=== PATIENT | male | born 1950 | race Caucasian/White ===

== ENCOUNTER → 2021-08-31 | Outpatient (CLI) | payer MEDICARE, OTHER ==
[~2021-08-31] MED LIST: ACET500T68 PO; ASPI-630 PO; CHOL500016 PO; GABA600T7 PO; LATA7.5D OU; MELO15TA23 PO; METF10007 PO; METO100T7 PO; OMEG10005 PO; OMEP40CA7 PO; PHEN37.53 PO; TOPI50TA8 PO; VIT1TABL34 PO
[2021-08-31 09:20] LABS: BASO # 0.1 x10^3/uL (0.0-0.2); BASO % 1 % (0-3); EOS # 0.3 x10^3/uL (0.0-0.7); EOS % 5 % (0-3); HEMATOCRIT 42.3 % (39.0-53.0); HEMOGLOBIN 14.7 g/dL (13.0-17.5); LYMPH # 1.5 x10^3/uL (1.0-4.8); LYMPH % 22 % (24-48); MEAN CORPUSCULAR HEMOGLOBIN 33 pg (25-35); MEAN CORPUSCULAR HGB CONC 35 g/dL (31-37); MEAN CORPUSCULAR VOLUME 94 fL (79-100); MONO # 0.6 x10^3/uL (0.0-1.1); MONO % 9 % (0-9); NEUT # 4.5 x10^3/uL (1.8-7.7); NEUT % 64 % (31-73); PLATELET COUNT 217 x10^3/uL (140-400); RED BLOOD COUNT 4.52 x10^6/uL (4.30-5.70); RED CELL DISTRIBUTION WIDTH 13.7 % (11.5-14.5)
[2021-08-31 09:29] LABS: PROTHROMBIN TIME PATIENT 12.8 SEC (11.7-14.0)
[2021-08-31 09:35] LABS: ALBUMIN 3.2 g/dL (3.4-5.0); GFR 73.5; POTASSIUM 4.2 mmol/L (3.5-5.1)
--- NOTE | 2021-08-31 11:55 | EKG ---
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
--- NOTE | 2021-08-31 12:48 | RAD ---
EXAM: Chest, 2 views. HISTORY: Hypertension. COMPARISON: None. FINDINGS: 2 views of the chest are obtained. There is no infiltrate, pleural effusion or pneumothorax . There is left basilar atelectasis. There is slight eventration of the right hemidiaphragm. The hear t is normal in size. There is a cardiac pacemaker in expected position. IMPRESSION: No acute pulmonary finding. Electronically signed by: Rissa Weber MD (08/31/2021 12:46 PM) [id number]
[2021-08-31 23:08] LABS: HEMOGLOBIN A1C 6.1 % (4.8-5.6)
== END ==
LOC: SURGPAT 12:33
PROVIDERS: ATTEND Orthopaedic Surgery
DX: Z01.818 Encounter for other preprocedural examination (principal); J98.11 Atelectasis; M16.12 Unilateral primary osteoarthritis, left hip
CPT/HCPCS: 36415; 71046; 80048; 82040; 82306; 83036; 85025; 85610; 85651; 85730; 87641; 93005

== ENCOUNTER 2021-10-12 09:32 | Emergency (ER) | payer MEDICARE, OTHER ==
[~2021-10-12] VITALS: Ht 182.9 cm; Wt 133.2 kg
[~2021-10-12 09:32] MED LIST changes: +OXYC5CAP PO; +TRAM50TA PO; +WARF-31 PO
--- NOTE | 2021-10-12 10:17 | RAD ---
EXAM: Pelvis and left hip, 2 views. HISTORY: Pain. COMPARISON: 09/15/2021 FINDINGS: A frontal view of the pelvis and 2 views of the left hip are obtained. There is a left hip arthroplasty in expected position. There is moderate marginal right acetabular and femoral head spurr ing. There is degenerative change at the lower lumbar levels. IMPRESSION: 1. Left hip arthroplasty in expected position. 2. Moderate right hip osteoarthritis. Electronically signed by: Rissa Weber MD (10/12/2021 10:15 AM) [id number]
--- NOTE | 2021-10-12 10:32 | PHYS DOC ---
Past Medical History Additional Past Medical Histor: bradycardia Past Surgical History: Other Additional Past Surgical Histo: left hip replacement one month ago, left achilles tendon repair, pacemaker Smoking Status: Never Smoker Alcohol Use: None General Adult EDM: Chief Complaint: HIP PAIN HPI: HPI: 71 yo M past medical history of bradycardia with pacemaker, presents to the ED with complaints of left-sided low back pain that radiates to left anterior thigh that started when he was getting out of a car. States "my hip feels like a guitar string got snapped." Report left hip replacement surgery with Dr. Barnett approximately 1 month ago. States he was able to use the [employer] stairs yesterday, "I haven't been able to do stairs in months." Denies any fall, blunt trauma or injury. States " this feels like my sciatica." Denies any history of trauma, history of IV drug use, history of cancer, history of malignancy, history of immunocompromise state, neurologic complaints including saddle anesthesia, weakness or paresthesias, urinary retention, bowel or bladder inc ontinence, night pain, fever/chills/night sweats, unexplained weight loss, anticoagulants or coagulopathy, prolonged steroid use or presence of contusions or abrasions. No relief with oxycodone taken prior to ed arrival. Review of Systems: Review of Systems: Constitutional: Denies fever or chills. [] Eyes: Denies change in visual acuity. [] HENT: Denies nasal congestion or sore throat. [] Respiratory: Denies cough or shortness of breath. [] Cardiovascular: Denies chest pain or edema. [] GI: Denies nausea or vomiting : Denies incontinence or saddle anesthesia Musculoskeletal: Denies flank pain or joint pain. [] Integument: Denies rash or diaphoresis Neurologic: Denies headache, focal weakness or sensory changes. [] Endocrine: Denies polyuria or polydipsia. [] Lymphatic: Denies swollen glands. [] Psychiatric: Denies depression or anxiety. [] Heart Score: C/O Chest Pain: No Risk Factors: Risk Factors: DM, Current or recent (<one month) smoker, HTN, HLP, family history of CAD, obesity. Risk Scores: Score 0 - 3: 2.5% MACE over next 6 weeks - Discharge Home Score 4 - 6: 20.3% MACE over next 6 weeks - Admit for Clinical Observation Score 7 - 10: 72.7% MACE over next 6 weeks - Early Invasive Strategies Allergies: Allergies: Allergies Coded Allergies Type Severity Reaction Last Updated Verified No Known Drug Allergies 09/15/21 No Physical Exam: PE: Constitutional: Well developed, well nourished, no acute distress, non-toxic appearance. HENT: Normocephalic, atraumatic, Eyes: EOMI, conjunctiva normal, no discharge. Neck: Normal range of motion, supple, Cardiovascular: S1/2 present, regular rhythm Lungs & Thorax: Speaking in full sentences, bilateral equal chest rise, no tachypnea or increased work of breathing Abdomen: soft, no tenderness, Skin: Warm, dry, no erythema, no rash. [] Back: +lumbar midline tenderness, no CVA tenderness. [] Extremities: no cyanosis, equal bilateral lower extremity edema, L5/S1 sensation intact, left hip surgical site c/d/i-no rash or dehiscence Neurologic: Alert and oriented X 3, normal motor function, normal sensory function, no focal deficits noted. [] Psychologic: Affect normal, judgement normal, mood normal. [] Current Patient Data: Vital Signs: Vital Signs Date Time Temp Pulse Resp B/P (MAP) Pulse Ox O2 Delivery O2 Flow Rate FiO2 10/12/21 09:40 97.8 76 12 109/73 (85) Room Air 97.8 EKG: EKG: [] Radiology/Procedures: Radiology/Procedures: [] IMAGING REPORT Signed PATIENT: SHIVAM RUBY LACCOUNT: [id number] : 1950 LOCATION: ER AGE: 71 SEX: M EXAM STATUS: PRE ER ORD. PHYSICIAN: TESSA LEON DO REASON: hip pain,left hip replacement one month ago, felt a "pop" yesterday PROCEDURE: HIP LEFT 2V WITH PELVIS EXAM: Pelvis and left hip, 2 views. HISTORY: Pain. COMPARISON: 09/15/2021 FINDINGS: A frontal view of the pelvis and 2 views of the left hip are obtained. There is a left hip arthroplasty in expected position. There is moderate marginal right acetabular and femoral head spurring. There is degenerative change at the lower lumbar levels. IMPRESSION: 1. Left hip arthroplasty in expected position. 2. Moderate right hip osteoarthritis. Electronically signed by: Rissa Aguilera MD (10/12/2021 10:15 AM) [id number] DICTATED and SIGNED BY: RISSA AGUILERA MD DATE: 10/12/21 [id number] IMAGING REPORT Signed PATIENT: SHIVAM RUBY LACCOUNT: [id number] : 1950 LOCATION: ER AGE: 71 SEX: M EXAM STATUS: REG ER ORD. PHYSICIAN: TESSA LEON DO REASON: radiculoapthy left PROCEDURE: CT LUMBAR SPINE WO CONTRAST EXAM: Lumbar spine CT without contrast. HISTORY: Radiculopathy. TECHNIQUE: Computed tomographic images of the lumbar spine were obtained without contrast. Multiplanar reformatting was performed. *One or more of the following individualized dose reduction techniques were utilized for this examination: 1. Automated exposure control. 2. Adjustment of the mA and/or kV according to patient size. 3. Use of iterative reconstruction technique. COMPARISON: None. FINDINGS: There is mild lumbar hyperlordosis. There is 3 mm grade 1 anterolisthesis of L5 on S1. There is multilevel endplate remodeling and anterior predominant spurring. There is decreased interspinous space of the lumbar levels, a finding which can be seen with Baastrup's disease. There is no fracture or suspicious osseous lesion. There is degenerative subchondral sclerosis, spurring and vacuum phenomenon involving the sacroiliac joints. There is partial visualization of a left hip arthroplasty. There are multiple simple appearing left renal parapelvic cysts. At L1-L2, there is a disc bulge and endplate remodeling. There is mild right greater than left facet arthropathy. There is mild right foraminal stenosis. At L2-L3, there is a disc bulge and endplate remodeling. There is mild bilateral facet arthropathy. There is no stenosis. At L3-L4, there is a disc bulge and endplate remodeling. There is mild bilateral facet arthropathy. There is mild bilateral foraminal stenosis. There is mild central canal stenosis. At L4-L5, there is a disc bulge and endplate remodeling. There is mild bilateral facet arthropathy. There is no stenosis. At L5-S1, there is endplate remodeling. There is severe right and moderate left facet arthropathy. There is grade 1 anterolisthesis. There is no stenosis. IMPRESSION: 1. Multilevel degenerative change involving the lumbar spine, described in detail above. 2. Degenerative change involving both sacroiliac joints and partial visualization of a left hip arthroplasty. 3. Multilevel left renal parapelvic cysts, partially included on the [id number]. Electronically signed by: Rissa Aguilera MD (10/12/2021 11:47 AM) [id number] DICTATED and SIGNED BY: RISSA AGUILERA MD DATE: 10/12/21 [id number] 0 Course & Med Decision Making: Course & Med Decision Making Pertinent Labs and Imaging studies reviewed. (See chart for details) Concern for lumbar back pain with radiculopathy. Patient ambulatory, neurologically intact. Pain alleviated with analgesia given in ED. 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 Will discharge home with strict ED return precautions were given for incontinence, fever, neck stiffness, headache or saddle anesthesia. Encouraged urgent outpatient follow-up with PMD and orthopedic surgery. Life-threatening processes were considered but are low suspicion at this time, given history, physical exam and ED workup. Pt was educated on all prescription medications and adverse effects. All patient's questions were answered and pt was stable at time of discharge. Life/limb-threatening differential includes but is not limited to, aortic dissection/aneurysm, cauda equina syndrome, transverse myelitis, spinal cord/epidural compression syndromes, discitis, spinal stenosis, epidural abscess or hematoma, osteomyelitis, disc herniation, surgical abdomen, stable or unstable fracture, renal/ureteral colic, sepsis, meningitis, musculoskeletal injury, traumatic injury, intraabdominal/retroperitoneal or pelvic bleeding. I have spoken with the patient and/or caregivers. I explained the patient's condition, diagnoses and treatment plan based on the information available to me at this time. I have answered the patient and/or caregiver's questions and addressed any concerns. The patient and/or caregivers have a good understanding of patient's diagnosis, condition and treatment plan as can be expected at this point. Vital signs have been stable. Patient's condition is stable and appropriate for discharge from the emergency department. Patient will pursue further outpatient evaluation with primary care physician or other designated or consulting physician as outlined in the discharge instructions. The patient and/or caregivers are agreeable to this plan of care and follow-up instructions have been explained in detail. The patient and/or caregivers have received these instructions in written form and have expressed an understanding of the discharge instructions. The patient and/or caregivers are aware that any significant change of condition or worsening of symptoms should prompt immediate return to this or the closest emergency department or call to 1[facility] Parker Disclaimer: Keith Disclaimer: This electronic medical record was generated, in whole or in part, using a voice recognition dictation system. Departure Departure Impression: Primary Impression: Left hip pain Additional Impression: Lumbar back pain with radiculopathy affecting left lower extremity Disposition: HOME / SELF CARE / HOMELESS Condition: STABLE Referrals: Madeline HOLLIS MD (PCP) Follow-up with your primary care physician in 24 to 48 hours OR FOLLOW UP WITH FAMILY MEDICINE: [address], [facility] [address] [place] [address] Patient Instructions: Hip Pain, Lumbosacral Radiculopathy Additional Instructions: FOLLOW UP WITH ORTHOPEDICS: FOR DEFINITIVE MANAGEMENT of low back pain/radiculopathy Orthopaedic Surgery [address] [facility] [place] [address] EMERGENCY DEPARTMENT GENERAL DISCHARGE INSTRUCTIONS Thank you for coming to [facility] Emergency Department (ED) today and trusting us with you care. We trust that you had a positive experience in our Emergency Department. If you wish to speak to the department management, you may call the Director at [phone]. YOUR FOLLOW UP INSTRUCTIONS ARE FOLLOWS: 1. Do you have a private Doctor? If you do not have a private doctor, please ask for a resource list of physicians or clinics that may be able to assist you with follow up care. 2. The Emergency Physicain has interpreted your x-rays. The X-Ray specialist will also review them. If there is a change in the findings, you will be notified in 48 hours when at all possible. 3. A lab test or culture has been done, your results will be reviewed and you will be notified if you need a change in treatment. ADDITIONAL INSTRUCTIONS AND INFORMATION: 1. Your care today has been supervised by a physician who is specially trained in emergency care. Many problems require more than one evaluation for a complete diagnosis and treatment. We recommend that you schedule your follow up appointment as recommended to ensure complete treatment of you illness or injury. If you are unable to obtain follow up care and continue to have a problem, or if your condition worsens, we recommend that you return to the ED. 2. We are not able to safely determine your condition over the phone nor are we able to give sound medical advice over the phone. For these safety reasons, if you call for medical advice we will ask you to come to the ED for further evaluation. 3. If you have any questions regarding these discharge instructions please call the ED at [phone]. SAFETY INFORMATION: In the interest of safety, wellness, and injury prevention; we encourage you to wear your sealbelt, if you smoke; quite smoking, and we encourage family to use a protective helmet for bicycling and other sporting events that present an increased risk for head injury. IF YOUR SYMPTOMS WORSEN OR NEW SYMPTOMS DEVELOP, OR YOU HAVE CONCERNS ABOUT YOUR CONDITION; OR IF YOUR CONDITION WORSENS WHILE YOU ARE WAITING FOR YOUR FOLLOW UP APPOINTMENT; EITHER CONTACT YOUR PRIMARY CARE DOCTOR, THE PHYSICIAN WHOSE NAME AND NUMBER YOU WERE GIVEN, OR RETURN TO THE ED IMMEDIATELY. Scripts Cyclobenzaprine Hcl (CYCLOBENZAPRINE HCL) 10 Mg Tablet 1 TAB PO TID for back pain, #21 TAB Prov: TESSA LEON DO 10/12/21 TESSA LEON DO Oct 12, 2021 10:32
[2021-10-12] MEDS ORDERED: diazePAM 5 MG TABLET PO ONE (11:15)
[2021-10-12] MEDS ORDERED: IBUPROFEN 200 MG TABLET. PO ONE (11:15)
[2021-10-12] MEDS ORDERED: ACETAMINOPHEN 325 MG TABLET. PO ONE (11:15)
--- NOTE | 2021-10-12 11:50 | RAD ---
EXAM: Lumbar spine CT without contrast. HISTORY: Radiculopathy. TECHNIQUE: Computed tomographic images of the lumbar spine were obtained without contrast. Multiplana r reformatting was performed. *One or more of the following individualized dose reduction techniques were utilized for this examina tion: 1. Automated exposure control. 2. Adjustment of the mA and/or kV according to patient size. 3. Use of iterative reconstruction technique. COMPARISON: None. FINDINGS: There is mild lumbar hyperlordosis. There is 3 mm grade 1 anterolisthesis of L5 on S1. Ther e is multilevel endplate remodeling and anterior predominant spurring. There is decreased interspinou s space of the lumbar levels, a finding which can be seen with Baastrup's disease. There is no fractu re or suspicious osseous lesion. There is degenerative subchondral sclerosis, spurring and vacuum phe nomenon involving the sacroiliac joints. There is partial visualization of a left hip arthroplasty. T here are multiple simple appearing left renal parapelvic cysts. At L1-L2, there is a disc bulge and endplate remodeling. There is mild right greater than left facet arthropathy. There is mild right foraminal stenosis. At L2-L3, there is a disc bulge and endplate remodeling. There is mild bilateral facet arthropathy. T here is no stenosis. At L3-L4, there is a disc bulge and endplate remodeling. There is mild bilateral facet arthropathy. T here is mild bilateral foraminal stenosis. There is mild central canal stenosis. At L4-L5, there is a disc bulge and endplate remodeling. There is mild bilateral facet arthropathy. T here is no stenosis. At L5-S1, there is endplate remodeling. There is severe right and moderate left facet arthropathy. Th ere is grade 1 anterolisthesis. There is no stenosis. IMPRESSION: 1. Multilevel degenerative change involving the lumbar spine, described in detail above. 2. Degenerative change involving both sacroiliac joints and partial visualization of a left hip arthr oplasty. 3. Multilevel left renal parapelvic cysts, partially included on the [id number]. Electronically signed by: Rissa Weber MD (10/12/2021 11:47 AM) [id number]
[2021-10-12 12:15] VITALS: BP 120/67
[2021-10-12] MEDS ORDERED: CYCL10TA19 PO (12:27)
[2021-10-12 13:14] LABS: BILIRUBIN,URINE NEGATIVE (NEG); CLARITY,URINE CLEAR; COLOR,URINE YELLOW; NITRITE,URINE NEGATIVE (NEG); PH,URINE 6.5 (<5.0-8.0); PROTEIN,URINE NEGATIVE (NEG-TRACE)
[2021-10-12 13:27] LABS: HYALINE CASTS, URINE MODERATE /HPF
[2021-10-12 13:28] LABS: BACTERIA,URINE 0 /HPF (0-FEW); RBC,URINE 0 /HPF (0-2)
== END 2021-10-12 13:53 | disposition home or self-care (01) ==
LOC: ER 09:32
DX: M25.552 Pain in left hip (principal); M54.16 Radiculopathy, lumbar region; M79.605 Pain in left leg; Z96.642 Presence of left artificial hip joint
CPT/HCPCS: 72131; 73502; 81001; 99285-25

== ENCOUNTER 2022-03-18 09:06 | Emergency (ER) | payer MEDICARE, OTHER ==
[~2022-03-18] VITALS: Ht 182.9 cm; Wt 138.7 kg
[~2022-03-18 09:06] MED LIST changes: +CYCL10TA19 PO
--- NOTE | 2022-03-18 09:54 | PHYS DOC ---
Past Medical History Additional Past Medical Histor: bradycardia Past Surgical History: Other Additional Past Surgical Histo: left hip replacement Aug 2021, left achilles tendon repair, pacemaker Smoking Status: Never Smoker Alcohol Use: None General Adult EDM: Chief Complaint: DIARRHEA HPI: HPI: Patient is a 71 year old male presents to the ER with 4 days of copious diarrhea and body aches. Patient states that he is taking Imodium with no improvement. Denies any fevers denies chills. Denies any sick contacts. Patient is vaccinated for COVID. Denies any new Food exposures. Review of Systems: Review of Systems: Constitutional: Denies fever or chills. [] Body aches Eyes: Denies change in visual acuity. [] HENT: Denies nasal congestion or sore throat. [] Respiratory: Denies cough or shortness of breath. [] Cardiovascular: Denies chest pain or edema. [] GI: Reports diarrhea denies abdominal pain, nausea, vomiting, bloody stools : Denies dysuria. [] Musculoskeletal: Denies back pain or joint pain. [] Integument: Denies rash. [] Neurologic: Denies headache, focal weakness or sensory changes. [] Endocrine: Denies polyuria or polydipsia. [] Lymphatic: Denies swollen glands. [] Psychiatric: Denies depression or anxiety. [] Heart Score: C/O Chest Pain: No Risk Factors: Risk Factors: DM, Current or recent (<one month) smoker, HTN, HLP, family history of CAD, obesity. Risk Scores: Score 0 - 3: 2.5% MACE over next 6 weeks - Discharge Home Score 4 - 6: 20.3% MACE over next 6 weeks - Admit for Clinical Observation Score 7 - 10: 72.7% MACE over next 6 weeks - Early Invasive Strategies Allergies: Allergies: Allergies Coded Allergies Type Severity Reaction Last Updated Verified No Known Drug Allergies 09/15/21 No Physical Exam: PE: Constitutional: Well developed, well nourished, no acute distress, non-toxic appearance. [] HENT: Normocephalic, atraumatic, bilateral external ears normal, oropharynx moist, no oral exudates, nose normal. [] Eyes: PERRLA, EOMI, conjunctiva normal, no discharge. [] Neck: Normal range of motion, no tenderness, supple, no stridor. [] Cardiovascular:Heart rate regular rhythm, no murmur [] Lungs & Thorax: Bilateral breath sounds clear to auscultation [] Abdomen: Bowel sounds normal, soft, no tenderness, no masses, no pulsatile masses. [] Skin: Warm, dry, no erythema, no rash. [] Back: No tenderness, no CVA tenderness. [] Extremities: No tenderness, no cyanosis, no clubbing, ROM intact, no edema. [] Neurologic: Alert and oriented X 3, normal motor function, normal sensory function, no focal deficits noted. [] Psychologic: Affect normal, judgement normal, mood normal. [] Current Patient Data: Labs: Laboratory Tests Test 03/18/22 09:28 Glucose (Fingerstick) 162 mg/dL (70-99) H Vital Signs: Vital Signs Date Time Temp Pulse Resp B/P (MAP) Pulse Ox O2 Delivery O2 Flow Rate FiO2 03/18/22 09:14 98.9 74 22 150/90 (110) 96 Room Air 98.9 EKG: EKG: [] Radiology/Procedures: Radiology/Procedures: [] Course & Med Decision Making: Course & Med Decision Making Pertinent Labs and Imaging studies reviewed. (See chart for details) [] Patient is positive for COVID. Return precautions were discussed. Dragon Disclaimer: Keith Disclaimer: This electronic medical record was generated, in whole or in part, using a voice recognition dictation system. Departure Departure Referrals: Madeline HOLLIS MD (PCP) YONY PINEDA DO Mar 18, 2022 09:54
[2022-03-18] MEDS ORDERED: IV NORMAL SALINE 1000ML BAG 1,000 ML IV ONE (10:15)
[2022-03-18] MEDS ORDERED: KETOROLAC 15 MG/ML VIAL. IVP ONE (10:45)
[2022-03-18 10:50] LABS: BASO % 1 % (0-3); EOS # 0.3 x10^3/uL (0.0-0.7); EOS % 6 % (0-3); HEMATOCRIT 46.6 % (39.0-53.0); LYMPH # 1.1 x10^3/uL (1.0-4.8); LYMPH % 21 % (24-48); MEAN CORPUSCULAR HEMOGLOBIN 31 pg (25-35); MEAN CORPUSCULAR HGB CONC 34 g/dL (31-37); MEAN CORPUSCULAR VOLUME 90 fL (79-100); MONO # 0.7 x10^3/uL (0.0-1.1); MONO % 13 % (0-9); NEUT % 59 % (31-73); PLATELET COUNT 186 x10^3/uL (140-400); RED BLOOD COUNT 5.16 x10^6/uL (4.30-5.70); RED CELL DISTRIBUTION WIDTH 14.4 % (11.5-14.5)
[2022-03-18 10:56] LABS: CALCIUM 9.1 mg/dL (8.5-10.1); CREATININE 1.1 mg/dL (0.7-1.3); GFR 65.8; POTASSIUM 4.4 mmol/L (3.5-5.1)
[2022-03-18 11:01] LABS: ALBUMIN 3.6 g/dL (3.4-5.0); ALBUMIN/GLOBULIN RATIO 0.9 (1.0-1.7); TOTAL BILIRUBIN 1.1 mg/dL (0.2-1.0); TOTAL PROTEIN 7.5 g/dL (6.4-8.2)
[2022-03-18 11:07] LABS: INFLUENZA A PATIENT NEGATIVE (NEGATIVE); INFLUENZA B PATIENT NEGATIVE (NEGATIVE)
[2022-03-18] MEDS ORDERED: IBUP-1007 PO (11:23)
[2022-03-18 11:30] VITALS: BP 125/63
== END 2022-03-18 11:35 | disposition home or self-care (01) ==
LOC: ER 09:06
DX: U07.1 COVID-19 (principal)
CPT/HCPCS: 36415; 80053; 82962; 83690; 85025; 87428; 96361; 96374; 99283; J1885; J7030